=== PATIENT | male | born 1980 | race Caucasian/White ===

== ENCOUNTER 2018-12-20 19:17 | Emergency (ER) | payer BC, SELFPAY ==
[2018-12-20] MEDS ORDERED: Adacel (T-DAP) 0.5 ML SYRINGE ONE (19:27)
[2018-12-20] MEDS ORDERED: Lidocaine 1% (PF) 30 ML VIAL ONE (19:34)
[2018-12-20] MEDS ORDERED: Rabies Vaccine Human 2.5 UNITS VIAL ONE (21:01)
== END 2018-12-20 20:24 | disposition left against medical advice (07) ==
LOC: NAV ERS 19:17
DX: S01.511A Laceration without foreign body of lip, initial encounter (principal); F17.210 Nicotine dependence, cigarettes, uncomplicated; W54.0XXA Bitten by dog, initial encounter
CPT/HCPCS: 12013; 90471; 90675; 90715; J2001